=== PATIENT | male | born 1980 | race Caucasian/White ===

== ENCOUNTER → 2017-12-25 | Outpatient (CLI) | payer OTHER ==
[~2017-12-25] MED LIST: GABA-113 PO; GLC5 PO; GLC500 PO; LISI-461 PO; METH-307 PO; MULT-506 PO; OPTIRAY 320 IV PRN; OXYC-57 PO; OXYC-594 PO; OXYC-737 PO; RANI150T85 PO; SITA100T3 PO; SULF800T23 PO
--- NOTE | 2017-12-25 16:38 | DIAGNOSTIC IMAGING REPORT ---
CT SCAN OF THE ABDOMEN AND PELVIS WITH IV CONTRAST CLINICAL HISTORY: Testicular mass. COMPARISON STUDY: Abdominal CT dated 10/28/2008. TECHNIQUE: Following the IV administration of 93 cc of Optiray 320, CT scan of the abdomen and pelvis is performed from the lung bases to the proximal femora. Images are reviewed in the axial, sagittal, and coronal planes. IV contrast was administered without complication. A dose lowering technique was utilized adhering to the principles of ALARA. FINDINGS: Lung bases: The heart is normal in size and without pericardial effusion. The lung bases are clear. Liver: The contrast-enhanced liver is normal in size, contour, and attenuation. There is no intrahepatic biliary ductal dilatation. The hepatic veins and portal veins are patent. There is an indeterminant 1.5 cm low-attenuation lesion in the left hepatic lobe seen on image #101. This is been present dating back to 2008 and although incompletely characterized likely represents a small hemangioma. Gallbladder: Unremarkable. Spleen: Normal in size and attenuation. Pancreas: Unremarkable. Adrenal glands: Unremarkable. Kidneys: The contrast enhanced kidneys are normal in size and without hydronephrosis. The kidneys enhance symmetrically. There are numerous small bilateral nonobstructing renal calculi. Abdominal vasculature: The abdominal aorta is normal in course and caliber noting mild to moderate and age advanced atherosclerotic calcification. There is high-grade stenosis with near complete occlusion seen in the left common iliac artery on image #236. Bowel: There is mild colonic diverticulosis without CT evidence of acute diverticulitis. No bowel obstruction is seen. The appendix is well-visualized and normal. Peritoneum: There is no intraperitoneal free air or abdominal ascites. Lymphadenopathy: None. Pelvic viscera: The bladder, prostate, and seminal vesicles are normal as imaged. There is evidence of previous right inguinal herniorrhaphy. Findings suggest previous right-sided orchiectomy. Skeletal structures: There is advanced disc space narrowing with endplate sclerosis seen at L5-S1. No lytic or blastic lesions are seen. IMPRESSION: 1. There is no evidence of metastatic disease in the abdomen or pelvis. 2. There are numerous bilateral nonobstructing renal calculi. 3. There is age advanced atherosclerotic calcification of the abdominal aorta. Focal high-grade stenosis is seen in the left common iliac artery. 4. Additional findings as above. Electronically signed by: David Ken M.D. 12/25/2017 4:37 PM Dictated Date/Time: 12/25/2017 4:32 PM
--- NOTE | 2017-12-25 16:58 | DIAGNOSTIC IMAGING REPORT ---
CT OF THE CHEST WITH IV CONTRAST CLINICAL HISTORY: Testicular mass. COMPARISON STUDY: Chest radiograph November 26, 2005. TECHNIQUE: Following IV administration of 93 mL of Optiray-320, helical axial images of the chest were obtained. Sagittal and coronal reconstructions were viewed as well as maximal intensity projections on an independent 3-D workstation. A dose lowering technique was utilized adhering to the principles of ALARA. CT DOSE: 891.93 mGy.cm FINDINGS: No enlarged axillary, mediastinal or hilar lymph nodes are present. The size of the heart is normal. There is no pericardial effusion. No pneumothorax or pleural effusion is noted. Minimal right lower lung opacity is present. No suspicious pulmonary nodules present. No suspicious lesion within the bony thorax is noted. The abdomen and pelvis will be reported separately. IMPRESSION: 1. No evidence of metastatic disease within the chest. 2. Minimal right lower lobe opacity. This likely reflects atelectasis although a mild infectious process such as bronchiolitis could have this appearance. Electronically signed by: Adolfo Fox M.D. 12/25/2017 4:57 PM Dictated Date/Time: 12/25/2017 4:48 PM
[2017-12-25 17:23] LABS: BASO % 0.2 %; BASO ABS # 0.02 K/uL (0-0.2); EOS % 2.5 %; EOS ABS # 0.26 K/uL (0-0.5); HEMATOCRIT 38.5 % (42-52); HEMOGLOBIN 12.9 g/dL (14.0-18.0); IG# 0.03 K/uL (0.00-0.02); LYMPH ABS # 3.48 K/uL (1.2-3.4); MEAN CORPUSCULAR HEMOGLOBIN 30.1 pg (25-34); MEAN CORPUSCULAR HGB CONC 33.5 g/dl (32-36); MEAN PLATELET VOLUME 9.9 fL (7.4-10.4); MONO % 6.7 %; MONO ABS # 0.71 K/uL (0.11-0.59); NEUT % 57.3 %; NEUT ABS # 6.06 K/uL (1.4-6.5); PLATELET COUNT 347 K/uL (130-400); RED CELL DISTRIBUTION WIDTH CV 13.4 % (11.5-14.5); RED CELL DISTRIBUTION WIDTH SD 43.7 fL (36.4-46.3); WHITE BLOOD COUNT 10.56 K/uL (4.8-10.8)
[2017-12-25 17:55] LABS: ALBUMIN 3.9 gm/dl (3.4-5.0); ALKALINE PHOSPHATASE 125 U/L (45-117); ALT/SGPT 42 U/L (12-78); AST/SGOT 13 U/L (15-37); BLOOD UREA NITROGEN 15 mg/dl (7-18); CALCIUM 9.2 mg/dl (8.5-10.1); CARBON DIOXIDE 26 mmol/L (21-32); CREATININE 0.96 mg/dl (0.60-1.40); GLUCOSE 270 mg/dl (70-99); POTASSIUM 3.7 mmol/L (3.5-5.1); SODIUM 133 mmol/L (136-145)
== END | disposition home or self-care (01) ==
LOC: C.CTS 15:56
PROVIDERS: ATTEND Urology
DX: N50.9 Disorder of male genital organs, unspecified (principal); N20.0 Calculus of kidney; I70.8 Atherosclerosis of other arteries

== ENCOUNTER → 2017-12-28 | Day surgery (SDC) | payer OTHER ==
[2017-12-25 13:29] VITALS: BMI 24.0
[~2017-12-28] VITALS: Ht 188 cm; Wt 86.4 kg
[~2017-12-28] MED LIST changes: +ATROPINE SULFATE 0.1 MG/ML 5ML SYR IV PRN; +BUPIVACAINE 0.25% 30 ML VIAL ONE; +CEFAZOLIN 2000MG IV PUSH 15 ML IV SCH; +DEXAMETHASONE SOD INJ 4 MG/ML VIAL ONE; +EpHEDrine SULFATE INJ 50 MG/ML AMP IV PRN; +FENTANYL CITRATE INJ 50 MCG/1 ML 2 ML VIAL IV ONE; +FENTANYL CITRATE INJ 50 MCG/1 ML 2 ML VIAL ONE; +FLUMAZENIL 0.1 MG/1 ML 10 ML VIAL IV PRN; -GLC500 PO; +HYDROmorphone INJ 0.5 MG/0.5 ML SYR ONE; +KETOROLAC TROMETHAMINE 30 MG/ML VIAL IV STA; +KETOROLAC TROMETHAMINE 30 MG/ML VIAL ONE; +LABETALOL HCL IV 5 MG/ML 20ML IV PRN; +LIDOCAINE HCL 1% 20 ML VIAL ONE; +LIDOCAINE HCL 2% 2 ML VIAL (20MG/ML) ONE; +MIDAZOLAM HCL 1 MG/ML 2ML VIAL ONE; -MULT-506 PO; +NALOXONE HCL 0.4 MG/1 ML VIAL/CARP IV PRN; +ONDANSETRON INJ 2 MG/ML 2 ML VIAL IV PRN; +ONDANSETRON INJ 2 MG/ML 2 ML VIAL ONE; -OPTIRAY 320 IV PRN; -OXYC-57 PO; +OXYCODONE/ACETAMINOPHEN 10/325MG TAB PO PRN; +PHENYLEPHRINE HCL INJ 10 MG/ML VIAL ONE; +PROMETHAZINE HCL INJ 12.5 MG in SODIUM CHLORIDE 0.9% 50ML 50 ML IV PRN; +PROPOFOL IV EMULSION 10 MG/ML 20 ML VIAL ONE; +ROCURONIUM BROMIDE 10 MG/ML 5 ML VIAL ONE; +SUCCINYLCHOLINE CHLORIDE 20 MG/ML 10 ML VIAL IV ONE
[2017-12-28 11:09] VITALS: BP 130/80; PULSE 87; TEMP 36.7; O2SAT 99; Ht 188 cm; Wt 86.4 kg
--- NOTE | 2017-12-28 11:37 | History & Physical Bridge Note ---
H&P Re-Evaluation Bridge Note: I have examined the patient, reviewed the History & Physical and in the interval since the performance of the History & Physical I have noted the following changes of clinical significance: No changes noted
--- NOTE | 2017-12-28 11:50 | Discharge Instructions ---
Discharge Instructions Date of Service Dec 28, 2017. Admission Reason for Admission: Testicular Mass Discharge Discharge Diagnosis / Problem: Testicular Mass. History of Contralateral Seminoma Discharge Goals Goal(s): Decrease discomfort, Improve function Activity Recommendations Activity Limitations: resume your previous activity Lifting Limitations: gradually increase as tolerated Exercise/Sports Limitations: gradually increase as tolerated . Instructions / Follow-Up Instructions / Follow-Up Call if any fevers or chills. Okay to shower in 24 hours. Ice scrotum and groin 20 mins on and 20 mins off as needed for pain and swelling. Scrotal support as needed. Call if any fevers or chills or bleeding or redness. No soaking, tubs, hot tubs, or swimming until after followup. No heavy lifting over 20-30 lbs. Current Hospital Diet Patient's current hospital diet: Discharge Diet Recommended Diet: Regular Diet Procedures Procedures Performed: Left Orchiectomy Pending Studies Studies pending at discharge: no Medical Emergencies . Who to Call and When: Medical Emergencies: If at any time you feel your situation is an emergency, please call 911 immediately. . Non-Emergent Contact Non-Emergency issues call your: Primary Care Provider, Urologist Call Non-Emergent contact if: you have a fever, temperature is above 101, temperature is above 101.5, your pain is not controlled, your pain is worsening , your pain is unusual for you, wound has increased drainage, wound has increased redness, wound has increased pain . . "Provider Documentation" section prepared by Ed Granado. .
--- NOTE | 2017-12-28 13:08 | [facility] Operative Report ---
Operative Report Operative Date Dec 28, 2017. Pre-Operative Diagnosis Left Testicular Mass, History of Seminoma Post-Operative Diagnosis Same Procedure(s) Performed Left Radical Inguinal Orchiectomy Surgeon Loy Estimated Blood Loss Minimal Findings Large suspicious mass of left testicle. Specimens 1. 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 Risks and benefits discussed at length. Long discussion about fertility and hormones. Due to size and location, partial orchiectomy was determined to but unlikely to be feasible. Patient understands risks and wishes to proceed with radical orchiectomy. Description of Procedure Patient was consented and brought back to the operating room. Patient was placed under anesthesia in the supine position. Patient was prepped and draped in the regular sterile fashion. A time out was completed. With the time out completed and the patient prepped, the left inguinal region was assessed and it was marked and local injected into the subcutaneous tissues. An incision was made with a scalpel and the deep tissues were dissected with bovie electrocautery. The tissue was dissected down towards the inguinal ring. The landmarks and nerves were monitored and gently retracted. The ring was identified and opened with Metzenbaum scissors. The cord was isolated without violation and a drain was used to isolate and assist with mobilization. The cord was tracked up the canal to allow a high ligation of the cord. Two Mary Kate clamps were used to clamp the cord structures. The cord was cut and the proximal end was ligated with 2-0 Silk suture x 2. The testicle was delivered en bloc from the scrotum and all attachments freed taking care to avoid violating any of the tissue. All important structures and landmarks were identified. The wound was fully assessed. All bleeding was controlled. The wound was irrigated with sterile water multiple times. A cord block was completed with additional local anesthetic into the stump. The entire area was examined. A Vicryl suture was used to close the inguinal ring fascia in a running fashion. The deep and subcutaneous tissues were closed with a running 2-0 vicryl suture. A 4-0 monocryl suture was then used to close the skin in a running fashion. The area was cleaned. Adhesive placed. The patient was cleaned, aroused from anesthesia, and transferred to the pacu in stable condition having tolerated the procedure well with no complications. I was present and participated in all aspects of the procedure. I attest to the content of the Intraoperative Record and any orders documented therein. Any exceptions are noted below.
[2017-12-28] MEDS: HYDROmorphone INJ 0.5 MG/0.5 ML SYR ONE ×2 (13:22→13:23)
[2017-12-28] MEDS: HYDROmorphone INJ 1 MG/ML SYR IV PRN ×8 (13:23→14:07)
[2017-12-28] MEDS: HYDROmorphone INJ 2 MG/ML SYR/VIAL IV PRN ×4 (14:17→14:34)
[2017-12-28] MEDS: FENTANYL CITRATE INJ 50 MCG/1 ML 2 ML VIAL ONE (14:44)
[2017-12-28 15:25] VITALS: BP 131/65; PULSE 65; TEMP 36.5; O2SAT 96
--- NOTE | 2017-12-28 15:33 | Anesthesiology Progress Note ---
Anesthesia Post Op Note Date & Time Dec 28, 2017 at 15:33 Vital Signs Pain Intensity: 6 Vital Signs Past 12 Hours Date Time Temp Pulse Resp B/P (MAP) Pulse Ox O2 Delivery O2 Flow Rate FiO2 12/28/17 15:15 62 21 98/66 98 Nasal Cannula 4 12/28/17 15:05 37 60 15 92/63 98 Nasal Cannula 4 12/28/17 14:55 63 15 97/65 97 Nasal Cannula 4 12/28/17 14:45 68 13 94/56 98 Nasal Cannula 4 12/28/17 14:35 76 15 101/60 97 Nasal Cannula 4 12/28/17 14:25 72 14 98/57 95 Nasal Cannula 4 12/28/17 14:15 85 25 127/75 95 Nasal Cannula 4 12/28/17 14:05 69 16 105/73 95 Nasal Cannula 4 12/28/17 13:55 73 23 93/68 94 Nasal Cannula 4 12/28/17 13:45 79 19 97/71 95 Nasal Cannula 4 12/28/17 13:35 95 24 126/75 93 Nasal Cannula 4 12/28/17 13:25 82 17 100/57 97 Oxymask 10 12/28/17 13:16 36.4 82 20 109/72 96 Oxymask 10 12/28/17 11:09 36.7 87 18 130/80 (97) 99 Room Air Notes Mental Status: alert / awake / arousable, participated in evaluation Pt Amnestic to Procedure: Yes Nausea / Vomiting: adequately controlled Pain: adequately controlled Airway Patency, RR, SpO2: stable & adequate BP & HR: stable & adequate Hydration State: stable & adequate Anesthetic Complications: no major complications apparent
[2017-12-28 15:55] VITALS: BP 130/78; PULSE 70; TEMP 36.5; O2SAT 94
== END | disposition home or self-care (01) ==
LOC: C.ACU 10:40
PROVIDERS: ATTEND Urology
DX: C62.92 Malignant neoplasm of left testis, unspecified whether descended or undescended (principal); I10 Essential (primary) hypertension; E11.9 Type 2 diabetes mellitus without complications; F17.200 Nicotine dependence, unspecified, uncomplicated; Z85.47 Personal history of malignant neoplasm of testis; Z79.899 Other long term (current) drug therapy